=== PATIENT | male | born 1940 | race Two or more races ===

== ENCOUNTER 2019-07-14 10:00 | Outpatient (CLI) | payer OTHER ==
[~2019-07-14 10:00] MED LIST: CEFADROXIL500 MG PO; COZAAR50 MG; GLUCOPHAGE XR500 MG; LIPITOR20 MG
== END 2019-07-14 10:05 | disposition home or self-care (01) ==
LOC: RAD 10:00
DX: R31.21 Asymptomatic microscopic hematuria (principal)

== ENCOUNTER → 2023-06-26 | Outpatient (CLI) | payer OTHER | END | disposition home or self-care (01) | LOC: NUCLEAR 10:20 | PROVIDERS: ATTEND Internal Medicine | DX: I70.201 Unspecified atherosclerosis of native arteries of extremities, right leg (principal); I87.8 Other specified disorders of veins ==

== ENCOUNTER 2024-11-12 08:27 | Outpatient (CLI) | payer OTHER | END 2024-11-12 08:29 | disposition home or self-care (01) | LOC: TOM 08:27 | PROVIDERS: ATTEND Internal Medicine | DX: R10.84 Generalized abdominal pain (principal) ==

== ENCOUNTER 2024-11-30 12:11 | Outpatient (CLI) | payer OTHER | END 2024-11-30 12:13 | disposition home or self-care (01) | LOC: TOM 12:11 | PROVIDERS: ATTEND Internal Medicine | DX: I63.9 Cerebral infarction, unspecified (principal) ==

== ENCOUNTER → 2024-12-29 09:38 | Outpatient (CLI) | payer OTHER | END | disposition home or self-care (01) | LOC: NUCLEAR 09:38 | PROVIDERS: ATTEND Internal Medicine | DX: G30.9 Alzheimer's disease, unspecified (principal) | CPT/HCPCS: 78803; A9557 ==